=== PATIENT | female | born 1945 | race African-American/Black ===

== ENCOUNTER 2021-04-26 14:30 | Emergency (ER) | payer MEDICARE ==
[2021-04-26] MEDS ORDERED: SODIUM BICARB 8.4% 50 MEQ/50 ML SYRINGE IV ONE (15:00)
[2021-04-26] MEDS ORDERED: EPINEPHrine 1 MG/10 ML SYRINGE ONE (15:00)
--- NOTE | 2021-04-26 15:20 | Emergency Department Report ---
ED CPR HPI - General Chief Complaint: Cardiac Arrest/CPR Stated Complaint: CARDIAC ARREST Time Seen by Provider: 04/26/21 14:31 Source: EMS Mode of arrival: Stretcher Limitations: Other - History of Present Illness Initial Comments: 75-year-old female, history of diabetes, hypertension, presents to ED via EMS in cardiac arrest. EMS reports they received a call decreased p.o. intake. When they arrived, patient was in arrest, unknown downtime. EMS unable to get much history due to language barrier. Initial rhythm of asystole. Patient was intubated on scene. She was given epi x4 and bicarb x1. She arrives to ED in continued arrest. ACLS in progress for approximately 25 minutes upon ED arrival. MD Complaint: found unresponsive Place: home Initial Findings in the Field: unresponsive, no respirations, no pulse, other rhythm (Asystole) ROSC in the Field: No Associated Symptoms: other (Decreased p.o. intake) Treatments Prior to Arrival: epinephrine mgs # (4), sodium bicarbonate (x1) ED Review of Systems ROS: Stated complaint: CARDIAC ARREST Other details as noted in HPI Comment: Unobtainable due to pts medical conditions ED Physical Exam - General Limitations: Other - Head Head exam: Present: atraumatic, normocephalic - Eye Pupils: Present: other (Fixed and dilated bilateral) - ENT ENT exam: Present: other (ET tube in place) - Neck Neck exam: Present: normal inspection - Respiratory Respiratory exam: Present: other (No spontaneous breaths) - Cardiovascular Cardiovascular Exam: Present: other (No palpable pulse) - GI/Abdominal GI/Abdominal exam: Present: soft. Absent: distended - Extremities Exam Extremities exam: Present: normal inspection, other (IO present in left lower leg) - Neurological Exam Neurological exam: Present: other (GCS 3) - Skin Skin exam: Present: warm, dry, intact, normal color ED Medical Decision Making - Medical Decision Making Code was run according to ACLS guidelines. Please see nurses notes for details. Unfortunately, we were unable to achieve ROSC. Time of was called at 14:27 - Differential Diagnosis Arrhythmia, STEMI, CVA, aortic dissection Critical care attestation.: If time is entered above; I have spent that time in minutes in the direct care of this critically ill patient, excluding procedure time. ED Disposition Clinical Impression: Cardiac arrest Disposition: 20 Is pt being admited?: No Condition: Stable Referrals: PRIMARY CARE, [Primary Care Provider] - 3-5 Days Time of Disposition: 15:18
== END 2021-04-26 15:00 ==
LOC: EDBD → ED 14:30
DX: I46.9 Cardiac arrest, cause unspecified (principal)
CPT/HCPCS: 92950; 99285; J0171